=== PATIENT | female | born 1960 ===

== ENCOUNTER 2023-11-27 05:30 | Day surgery (SDC) | payer OTHER ==
[~2023-11-27 05:30] MED LIST: COZAAR25 MG PO; ROSUVASTATIN CA20 MG PO
[2023-11-27] MEDS ORDERED: POVIDONE-IODINE 118 ML BOTT TOP ONE (08:30)
[2023-11-27] MEDS ORDERED: KETOROLAC TROMETHAMINE 30 MG VIAL IV STA (10:39)
== END 2023-11-27 13:15 | disposition home or self-care (01) ==
LOC: CIR.AMB 05:30
PROVIDERS: ATTEND Obstetrics & Gynecology
DX: D25.0 Submucous leiomyoma of uterus (principal); N95.0 Postmenopausal bleeding; I10 Essential (primary) hypertension